=== PATIENT | male | born 1970 | race Caucasian/White ===

== ENCOUNTER 2022-07-13 14:59 | Inpatient (IN) | payer OTHER ==
[2022-07-13 17:18] VITALS: BMI 27.8
[2022-07-13] MEDS ORDERED: IBUPROFEN 400 MG TABLET (FP) PO PRN (19:01)
[2022-07-13] MEDS ORDERED: methaDONE HCL 10 MG TABLET (FOR DETOX USE ONLY) PO ONE (19:01)
[2022-07-13] MEDS ORDERED: ACETAMINOPHEN 325 MG TABLET (FP) PO PRN ×2 (19:01)
[2022-07-13] MEDS ORDERED: BENZOCAINE/MENTHOL (CHLORASEPTIC ) LOZENGE MM PRN (19:01)
[2022-07-13] MEDS ORDERED: NALOXONE HCL (KLOXXADO) 8 MG SPRAY NS PRN (19:01)
[2022-07-13] MEDS ORDERED: MAG HYDROX/AL HYDROX/SIMETH 30 ML UNIT-DOSE CUP PO PRN (19:01)
[2022-07-13] MEDS ORDERED: LOPERAMIDE HCL 2 MG CAPSULE PO PRN (19:01)
[2022-07-13] MEDS ORDERED: IBUPROFEN 600 MG TABLET (FP) PO PRN (19:01)
[2022-07-13] MEDS ORDERED: DICYCLOMINE HCL 10 MG CAPSULE PO PRN (19:01)
[2022-07-13] MEDS ORDERED: MAGNESIUM HYDROX 2400MG/30ML ORAL SUSPENSION 30 ML CUP PO PRN (19:01)
[2022-07-13] MEDS ORDERED: BISMUTH SUBSALICYLATE 524 MG/30 ML PO PRN (19:01)
[2022-07-13] MEDS: cloNIDine HCL 0.1 MG TABLET PO PRN (19:48)
[2022-07-13] MEDS: THIAMINE HCL 100 MG TABLET (FP) PO SCH (22:13)
[2022-07-13] MEDS: METHOCARBAMOL 500 MG TABLET PO PRN (22:13)
[2022-07-13] MEDS: MELATONIN 5 MG TABLETS PO SCH (22:14)
[2022-07-14] MEDS: METHOCARBAMOL 500 MG TABLET PO PRN ×3 (05:14→20:53)
[2022-07-14] MEDS: diazePAM 5 MG TABLET PO PRN ×4 (09:45→22:02)
[2022-07-14] MEDS: NICOTINE 7 MG/24 HOURS TOPICAL PATCH TD SCH (09:47)
[2022-07-14] MEDS: PRENATAL VITAMINS W/ FOLIC ACID TABLET (FP) PO SCH (09:47)
[2022-07-14 10:46] LABS: CALCIUM 9.1 mg/dL (8.5-10.1)
[2022-07-14 10:47] LABS: ALBUMIN 3.5 g/dl (3.4-5.0); BLOOD UREA NITROGEN 19.3 mg/dL (7-18)
[2022-07-14 10:50] LABS: CREATININE 1.1 mg/dL (0.55-1.3)
[2022-07-14 10:51] LABS: BILIRUBIN,TOTAL 0.5 mg/dL (0.2-1)
[2022-07-14 10:52] LABS: TOT PROT 6.8 g/dl (6.4-8.2)
[2022-07-14] MEDS: NICOTINE 10 MG CARTRIDGE (INHALER) IH PRN ×3 (10:52→21:36)
[2022-07-14 10:56] LABS: HEMATOCRIT 44.4 % (35.4-49); HEMOGLOBIN 14.6 GM/dL (11.7-16.9); MCH 30.3 pg (25.7-33.7); MCHC 32.9 g/dl (32.0-35.9); MEAN CELL VOLUME 92.3 fl (80-96); MEAN PLT VOLUME 9.5 fl (7.5-11.1); PLATELET COUNT 181 10^3/uL (134-434); RBC 4.81 M/mm3 (4.00-5.60); RDW 13.2 % (11.9-15.9); WHITE BLOOD COUNT 6.2 K/mm3 (4.0-10.0)
[2022-07-14] MEDS: QUEtiapine FUMARATE 100 MG TABLET (FP) PO SCH (22:02)
[2022-07-14] MEDS: THIAMINE HCL 100 MG TABLET (FP) PO SCH (22:02)
[2022-07-14] MEDS: MELATONIN 5 MG TABLETS PO SCH (22:03)
[2022-07-15] MEDS ORDERED: methaDONE HCL 10 MG TABLET (FOR DETOX USE ONLY) PO ONE (10:00)
[2022-07-15] MEDS: NICOTINE 7 MG/24 HOURS TOPICAL PATCH TD SCH (10:07)
[2022-07-15] MEDS: METHOCARBAMOL 500 MG TABLET PO PRN ×2 (10:07→16:51)
[2022-07-15] MEDS: diazePAM 5 MG TABLET PO PRN ×4 (10:07→22:03)
[2022-07-15] MEDS: PRENATAL VITAMINS W/ FOLIC ACID TABLET (FP) PO SCH (10:07)
[2022-07-15] MEDS: NICOTINE 10 MG CARTRIDGE (INHALER) IH PRN ×3 (10:08→18:40)
[2022-07-15] MEDS: QUEtiapine FUMARATE 100 MG TABLET (FP) PO SCH (22:01)
[2022-07-15] MEDS: THIAMINE HCL 100 MG TABLET (FP) PO SCH (22:01)
[2022-07-15] MEDS: MELATONIN 5 MG TABLETS PO SCH (22:01)
[2022-07-15] MEDS: cloNIDine HCL 0.1 MG TABLET PO PRN (22:01)
[2022-07-16] MEDS: diazePAM 5 MG TABLET PO PRN ×4 (08:15→22:04)
[2022-07-16] MEDS: NICOTINE 10 MG CARTRIDGE (INHALER) IH PRN ×4 (08:16→22:07)
[2022-07-16] MEDS: NICOTINE 7 MG/24 HOURS TOPICAL PATCH TD SCH (10:20)
[2022-07-16] MEDS: PRENATAL VITAMINS W/ FOLIC ACID TABLET (FP) PO SCH (10:20)
[2022-07-16] MEDS: METHOCARBAMOL 500 MG TABLET PO PRN ×2 (10:21→20:15)
[2022-07-16] MEDS: THIAMINE HCL 100 MG TABLET (FP) PO SCH (22:04)
[2022-07-16] MEDS: QUEtiapine FUMARATE 100 MG TABLET (FP) PO SCH (22:05)
[2022-07-16] MEDS: MELATONIN 5 MG TABLETS PO SCH (22:06)
[2022-07-17] MEDS: NICOTINE 10 MG CARTRIDGE (INHALER) IH PRN ×4 (05:39→19:23)
[2022-07-17] MEDS: diazePAM 5 MG TABLET PO PRN ×4 (07:45→22:11)
[2022-07-17] MEDS ORDERED: methaDONE HCL 10 MG TABLET (FOR DETOX USE ONLY) PO ONE (10:00)
[2022-07-17] MEDS: PRENATAL VITAMINS W/ FOLIC ACID TABLET (FP) PO SCH (10:18)
[2022-07-17] MEDS: NICOTINE 7 MG/24 HOURS TOPICAL PATCH TD SCH (10:19)
[2022-07-17] MEDS: METHOCARBAMOL 500 MG TABLET PO PRN (10:19)
[2022-07-17 21:03] VITALS: RESP 18
[2022-07-17] MEDS: THIAMINE HCL 100 MG TABLET (FP) PO SCH (22:10)
[2022-07-17] MEDS: QUEtiapine FUMARATE 100 MG TABLET (FP) PO SCH (22:10)
[2022-07-17] MEDS: MELATONIN 5 MG TABLETS PO SCH (22:13)
[2022-07-18] MEDS: METHOCARBAMOL 500 MG TABLET PO PRN (04:29)
[2022-07-18] MEDS: NICOTINE 10 MG CARTRIDGE (INHALER) IH PRN (06:14)
[2022-07-18] MEDS ORDERED: diazePAM 5 MG TABLET PO ONE (06:48)
[2022-07-18 09:25] VITALS: BP 108/70; PULSE 85; TEMP 97.5
[2022-07-18] MEDS: NICOTINE 7 MG/24 HOURS TOPICAL PATCH TD SCH (09:47)
[2022-07-18] MEDS: PRENATAL VITAMINS W/ FOLIC ACID TABLET (FP) PO SCH (09:49)
== END 2022-07-18 10:10 | disposition home or self-care (01) | DRG 773 ==
LOC: YASAS 14:59 → Y6N 19:25
PROVIDERS: ADMIT Allergy & Immunology; ATTEND Surgery
PROC: HZ2ZZZZ Detoxification Services for Substance Abuse Treatment (ICD-10-PCS; principal; 2022-07-13)
DX: F11.23 Opioid dependence with withdrawal (principal); F12.20 Cannabis dependence, uncomplicated; F17.210 Nicotine dependence, cigarettes, uncomplicated; F39 Unspecified mood [affective] disorder; F41.9 Anxiety disorder, unspecified; K21.9 Gastro-esophageal reflux disease without esophagitis; Z28.310 Unvaccinated for COVID-19; Z56.0 Unemployment, unspecified; Z59.00 Homelessness unspecified
CPT/HCPCS: 36415; 80053; 85027; 86780; 93005; 93010; C9803-CS; U0003; U0005

== ENCOUNTER 2024-01-19 14:32 | Inpatient (IN) | payer OTHER ==
[2024-01-19 15:25] VITALS: BMI 23.3
[2024-01-19] MEDS ORDERED: MAG HYDROX/AL HYDROX/SIMETH 30 ML UNIT-DOSE CUP PO PRN (19:21)
[2024-01-19] MEDS ORDERED: MAGNESIUM HYDROX 2400MG/30ML ORAL SUSPENSION 30 ML CUP PO PRN (19:21)
[2024-01-19] MEDS ORDERED: ONDANSETRON *ODT* 4 MG TABLET SL PRN (19:21)
[2024-01-19] MEDS ORDERED: DICYCLOMINE HCL 10 MG CAPSULE PO PRN (19:21)
[2024-01-19] MEDS ORDERED: BENZOCAINE/MENTHOL (CHLORASEPTIC ) LOZENGE MM PRN (19:21)
[2024-01-19] MEDS ORDERED: LOPERAMIDE HCL 2 MG CAPSULE PO PRN (19:21)
[2024-01-19] MEDS ORDERED: P-EPHED 60MG/TRIPROLIDI 2.5MG TABLET PO PRN (19:21)
[2024-01-19] MEDS ORDERED: guaiFENesin 600 MG TABLET.ER (FP) PO PRN (19:21)
[2024-01-19] MEDS ORDERED: IBUPROFEN 400 MG TABLET (FP) PO PRN (19:21)
[2024-01-19] MEDS ORDERED: POLYETHYLENE GLYCOL (HEALTHYLAX) 3350 17 GM PACKET PO PRN (19:21)
[2024-01-19] MEDS ORDERED: BISMUTH SUBSALICYLATE 524 MG/30 ML PO PRN (19:21)
[2024-01-19] MEDS ORDERED: NALOXONE HCL 0.4 MG/ML VIAL IM PRN (19:21)
[2024-01-19] MEDS ORDERED: NALOXONE HCL (KLOXXADO) 8 MG SPRAY NS PRN (19:21)
[2024-01-19] MEDS ORDERED: ACETAMINOPHEN 325 MG TABLET (FP) PO PRN (19:21)
[2024-01-19] MEDS ORDERED: NICOTINE POLACRILEX 2 MG LOZENGE BC PRN (19:21)
[2024-01-19] MEDS ORDERED: BENZONATATE 200 MG CAPSULE PO PRN (19:21)
[2024-01-19] MEDS ORDERED: VITAMINS A AND D TOPICAL OINTMENT TP PRN (20:04)
[2024-01-19] MEDS: METHOCARBAMOL 500 MG TABLET PO PRN (22:34)
[2024-01-19] MEDS: hydrOXYzine PAMOATE 25 MG CAPSULE (FP) PO PRN (22:34)
[2024-01-19] MEDS: MELATONIN 5 MG TABLETS PO SCH (22:34)
[2024-01-19] MEDS: THIAMINE 100 MG TABLET PO SCH (22:34)
[2024-01-19] MEDS: TOLNAFTATE 1% CREAM 15 GM TUBE TP SCH (22:37)
[2024-01-20] MEDS: PRENATAL VITAMINS W/ FOLIC ACID TABLET (FP) PO SCH (10:28)
[2024-01-20] MEDS ORDERED: cloNIDine HCL 0.1 MG TABLET PO PRN (10:31)
[2024-01-20] MEDS: methaDONE HCL 10 MG TABLET (FOR DETOX USE ONLY) PO ONE (11:01)
[2024-01-20 11:51] LABS: POTASSIUM 4.6 mmol/L (3.5-5.1)
[2024-01-20 11:55] LABS: HEMATOCRIT 39.1 % (35.4-49); HEMOGLOBIN 13.3 GM/dL (11.7-16.9); MCH 30.6 pg (25.7-33.7); MCHC 33.9 g/dl (32.0-35.9); MEAN CELL VOLUME 90.1 fl (80-96); MEAN PLT VOLUME 9.5 fl (7.5-11.1); PLATELET COUNT 196 10^3/uL (134-434); RBC 4.34 M/mm3 (4.00-5.60); RDW 13.2 % (11.9-15.9); WHITE BLOOD COUNT 4.5 K/mm3 (4.0-10.0)
[2024-01-20 11:59] LABS: CALCIUM 9.1 mg/dL (8.5-10.1)
[2024-01-20 12:00] LABS: ALBUMIN 2.8 g/dl (3.4-5.0); BLOOD UREA NITROGEN 18.5 mg/dL (7-18)
[2024-01-20 12:04] LABS: BILIRUBIN,TOTAL 0.4 mg/dL (0.2-1); TOT PROT 5.9 g/dl (6.4-8.2)
[2024-01-20] MEDS: NICOTINE POLACRILEX 2 MG GUM BUC PRN (13:24)
[2024-01-20] MEDS: IBUPROFEN 600 MG TABLET (FP) PO PRN (14:50)
[2024-01-22] MEDS: methaDONE HCL 10 MG TABLET (FOR DETOX USE ONLY) PO ONE (10:09)
[2024-01-22] MEDS: busPIRone HCL 5 MG TABLET PO SCH (11:44)
[2024-01-22] MEDS: DIVALPROEX SODIUM 250 MG TABLET E.C. PO SCH (11:44)
[2024-01-22] MEDS: QUEtiapine FUMARATE 100 MG TABLET (FP) PO SCH (22:45)
[2024-01-24] MEDS: methaDONE HCL 10 MG TABLET (FOR DETOX USE ONLY) PO ONE (10:45)
[2024-01-25 08:56] VITALS: BP 113/73; PULSE 80; RESP 20; TEMP 98
== END 2024-01-25 09:33 | disposition other institution (70) | DRG 773 ==
LOC: YASAS 14:32 → Y3N 20:21
PROVIDERS: ADMIT Allergy & Immunology; ATTEND Surgery
PROC: HZ2ZZZZ Detoxification Services for Substance Abuse Treatment (ICD-10-PCS; principal; 2024-01-19)
DX: F11.23 Opioid dependence with withdrawal (principal); F14.20 Cocaine dependence, uncomplicated; F15.10 Other stimulant abuse, uncomplicated; F12.10 Cannabis abuse, uncomplicated; F17.210 Nicotine dependence, cigarettes, uncomplicated; F25.9 Schizoaffective disorder, unspecified; F19.24 Other psychoactive substance dependence with psychoactive substance-induced mood disorder; F41.9 Anxiety disorder, unspecified; G47.00 Insomnia, unspecified; K21.9 Gastro-esophageal reflux disease without esophagitis
CPT/HCPCS: 36415; 80053; 80305; 80307; 85027; 86780; 93005; 93010

== ENCOUNTER 2024-02-21 19:53 | Inpatient (IN) | payer OTHER ==
[2024-02-21 20:22] VITALS: BMI 23.8
[2024-02-21] MEDS ORDERED: cloNIDine HCL 0.1 MG TABLET PO PRN (22:06)
[2024-02-21] MEDS ORDERED: MAGNESIUM HYDROX 2400MG/30ML ORAL SUSPENSION 30 ML CUP PO PRN (22:06)
[2024-02-21] MEDS ORDERED: BISMUTH SUBSALICYLATE 524 MG/30 ML PO PRN (22:06)
[2024-02-21] MEDS ORDERED: LOPERAMIDE HCL 2 MG CAPSULE PO PRN (22:06)
[2024-02-21] MEDS ORDERED: BENZOCAINE/MENTHOL (CHLORASEPTIC ) LOZENGE MM PRN (22:06)
[2024-02-21] MEDS ORDERED: POLYETHYLENE GLYCOL (HEALTHYLAX) 3350 17 GM PACKET PO PRN (22:06)
[2024-02-21] MEDS ORDERED: IBUPROFEN 400 MG TABLET (FP) PO PRN (22:06)
[2024-02-21] MEDS ORDERED: NALOXONE (NARCAN) HCL 4 MG/0.1 ML SPRAY NS PRN (22:06)
[2024-02-21] MEDS ORDERED: BENZONATATE 200 MG CAPSULE PO PRN (22:06)
[2024-02-21] MEDS ORDERED: guaiFENesin 600 MG TABLET.ER (FP) PO PRN (22:06)
[2024-02-21] MEDS ORDERED: ACETAMINOPHEN 325 MG TABLET (FP) PO PRN (22:06)
[2024-02-21] MEDS ORDERED: NALOXONE HCL 0.4 MG/ML VIAL IM PRN (22:06)
[2024-02-21] MEDS ORDERED: ONDANSETRON *ODT* 4 MG TABLET SL PRN (22:06)
[2024-02-21] MEDS ORDERED: methaDONE HCL 10 MG TABLET (FOR DETOX USE ONLY) ONE (22:50)
[2024-02-21] MEDS: methaDONE HCL 10 MG TABLET (FOR DETOX USE ONLY) PO ONE (22:54)
[2024-02-22] MEDS: PRENATAL VITAMINS W/ FOLIC ACID TABLET (FP) PO SCH (09:26)
[2024-02-22] MEDS: DIVALPROEX SODIUM 500 MG TABLET E.C. PO SCH (09:27)
[2024-02-22] MEDS: DEXTROAMPHETAMINE/AMPHETAMINE 10 MG CAP.ER.24H PO SCH (09:27)
[2024-02-22] MEDS: METHYL SALICYLATE/MENTHOL OINT 30 GM TUBE TP SCH (09:28)
[2024-02-22] MEDS: NICOTINE 14 MG/24 HOURS TOPICAL PATCH TD SCH (09:29)
[2024-02-22] MEDS: LIDOCAINE 5% TOPICAL PATCH TP SCH (10:29)
[2024-02-22] MEDS: NICOTINE POLACRILEX 2 MG GUM BUC PRN (10:50)
[2024-02-22 12:04] LABS: CHLORIDE 108 mmol/L (98-107); POTASSIUM 4.7 mmol/L (3.5-5.1); SODIUM 140 mmol/L (136-145)
[2024-02-22 12:13] LABS: ANION GAP 2 mmol/L (4-13); BLOOD UREA NITROGEN 20.1 mg/dL (7-18); CALCIUM 8.9 mg/dL (8.5-10.1); CO2 30 mmol/L (21-32); GLUCOSE,RANDOM 120 mg/dL (74-106)
[2024-02-22 12:16] LABS: SGOT/AST 21 U/L (15-37)
[2024-02-22 12:17] LABS: SGPT/ALT 25 U/L (13-61)
[2024-02-22 12:18] LABS: BILIRUBIN,TOTAL 0.7 mg/dL (0.2-1); HEMOGLOBIN 13.5 GM/dL (11.7-16.9); MCH 31.1 pg (25.7-33.7); MCHC 32.9 g/dl (32.0-35.9); MEAN CELL VOLUME 94.5 fl (80-96); MEAN PLT VOLUME 9.3 fl (7.5-11.1); PLATELET COUNT 176 10^3/uL (134-434); RBC 4.34 M/mm3 (4.00-5.60); RDW 14.3 % (11.9-15.9); TOT PROT 5.9 g/dl (6.4-8.2); WHITE BLOOD COUNT 5.8 K/mm3 (4.0-10.0)
[2024-02-22 12:19] LABS: ALK PHOS 134 U/L (45-117)
[2024-02-22] MEDS: busPIRone HCL 10 MG TABLET (FP) PO SCH (13:21)
[2024-02-22] MEDS: TOLNAFTATE 1% CREAM 15 GM TUBE TP SCH (13:43)
[2024-02-22] MEDS: METHOCARBAMOL 500 MG TABLET PO PRN (16:43)
[2024-02-22] MEDS: IBUPROFEN 600 MG TABLET (FP) PO PRN (16:43)
[2024-02-22] MEDS: hydrOXYzine PAMOATE 25 MG CAPSULE (FP) PO PRN (16:44)
[2024-02-22] MEDS: THIAMINE 100 MG TABLET PO SCH (21:41)
[2024-02-22] MEDS: QUEtiapine FUMARATE 300 MG TABLET PO SCH (21:41)
[2024-02-22] MEDS: LIDOCAINE PATCH REMOVAL MC SCH (21:45)
[2024-02-22] MEDS ORDERED: MELATONIN 5 MG TABLETS PO SCH (22:00)
[2024-02-23] MEDS: methaDONE HCL 10 MG TABLET (FOR DETOX USE ONLY) PO ONE (09:43)
[2024-02-25] MEDS: methaDONE HCL 10 MG TABLET (FOR DETOX USE ONLY) PO ONE (09:36)
[2024-02-26] MEDS: MAG HYDROX/AL HYDROX/SIMETH 30 ML UNIT-DOSE CUP PO PRN (07:50)
[2024-02-26] MEDS: DICYCLOMINE HCL 10 MG CAPSULE PO PRN (16:27)
[2024-02-26] MEDS: metFORMIN HCL 500 MG TABLET (FP) PO ONE (19:23)
[2024-02-26] MEDS: INSULIN ASPART SLIDING SCALE (NOVOLOG) 1 VIAL SQ SCH (22:15)
[2024-02-27] MEDS: metFORMIN HCL 500 MG TABLET (FP) PO SCH (06:55)
[2024-02-28 09:12] VITALS: RESP 16; TEMP 97.1
[2024-02-28] MEDS: METHOCARBAMOL 500 MG TABLET PO ONE (09:42)
[2024-02-28 13:35] VITALS: BP 126/86; PULSE 87
== END 2024-02-28 13:35 | disposition other institution (70) | DRG 773 ==
LOC: YASAS 19:53 → Y6N 22:37
PROVIDERS: ADMIT Allergy & Immunology; ATTEND Surgery
PROC: HZ2ZZZZ Detoxification Services for Substance Abuse Treatment (ICD-10-PCS; principal; 2024-02-21)
DX: F11.23 Opioid dependence with withdrawal (principal); F14.20 Cocaine dependence, uncomplicated; F17.210 Nicotine dependence, cigarettes, uncomplicated; F25.0 Schizoaffective disorder, bipolar type; F19.280 Other psychoactive substance dependence with psychoactive substance-induced anxiety disorder; F19.282 Other psychoactive substance dependence with psychoactive substance-induced sleep disorder; F41.9 Anxiety disorder, unspecified; E11.9 Type 2 diabetes mellitus without complications; J45.909 Unspecified asthma, uncomplicated; K21.9 Gastro-esophageal reflux disease without esophagitis; M17.0 Bilateral primary osteoarthritis of knee; B35.3 Tinea pedis
CPT/HCPCS: 0241U-QW; 36415; 80053; 80307; 82962; 85027; 86780; 93005; 93010

== ENCOUNTER 2025-01-25 18:36 | Inpatient (IN) | payer OTHER ==
[2025-01-25 19:02] VITALS: BMI 23.6
[2025-01-25] MEDS ORDERED: NALOXONE (NARCAN) HCL 4 MG/0.1 ML SPRAY NS PRN (19:42)
[2025-01-25] MEDS ORDERED: BENZONATATE 200 MG CAPSULE PO PRN (19:42)
[2025-01-25] MEDS ORDERED: LOPERAMIDE HCL 2 MG CAPSULE PO PRN (19:42)
[2025-01-25] MEDS ORDERED: ONDANSETRON *ODT* 4 MG TABLET SL PRN (19:42)
[2025-01-25] MEDS ORDERED: BENZOCAINE/MENTHOL (CHLORASEPTIC ) LOZENGE MM PRN (19:42)
[2025-01-25] MEDS ORDERED: guaiFENesin 600 MG TABLET.ER (FP) PO PRN (19:42)
[2025-01-25] MEDS ORDERED: BISMUTH SUBSALICYLATE 524 MG/30 ML PO PRN (19:42)
[2025-01-25] MEDS ORDERED: ACETAMINOPHEN 325 MG TABLET (FP) PO PRN (19:42)
[2025-01-25] MEDS ORDERED: POLYETHYLENE GLYCOL (HEALTHYLAX) 3350 17 GM PACKET PO PRN (19:42)
[2025-01-25] MEDS ORDERED: IBUPROFEN 400 MG TABLET (FP) PO PRN (19:42)
[2025-01-25] MEDS: MELATONIN 5 MG TABLETS PO SCH (22:29)
[2025-01-25] MEDS: THIAMINE 100 MG TABLET PO SCH (22:29)
[2025-01-26] MEDS ORDERED: methaDONE HCL 10 MG TABLET (FOR DETOX USE ONLY) PO PRN (08:52)
[2025-01-26] MEDS: methaDONE HCL 10 MG TABLET (FOR DETOX USE ONLY) PO ONE (09:22)
[2025-01-26] MEDS: PRENATAL VITAMINS W/ FOLIC ACID TABLET (FP) PO SCH (09:25)
[2025-01-26] MEDS: BACITRACIN 0.9 GM PACKET TP SCH (11:04)
[2025-01-26 11:48] LABS: HEMOGLOBIN 12.2 g/dL (13.7-17.5); MEAN PLT VOLUME 11.2 fl (9.4-12.4); PLATELET COUNT 199 x10^3/uL (163-337); RDW 13.2 % (12.2-16.1)
[2025-01-26 12:09] LABS: CHLORIDE 110 mmol/L (98-107); POTASSIUM 3.9 mmol/L (3.5-5.1); SODIUM 141 mmol/L (136-145)
[2025-01-26 12:28] LABS: ALBUMIN 2.9 g/dl (3.4-5.0); ANION GAP 6 mmol/L (4-13); CALCIUM 9.3 mg/dL (8.5-10.1); CO2 25 mmol/L (21-32); GLUCOSE,RANDOM 192 mg/dL (74-106)
[2025-01-26 12:29] LABS: BLOOD UREA NITROGEN 19.9 mg/dL (7-18)
[2025-01-26 12:30] LABS: CREATININE 0.9 mg/dL (0.55-1.3)
[2025-01-26 12:31] LABS: SGOT/AST 24 U/L (15-37); SGPT/ALT 33 U/L (13-61)
[2025-01-26 12:32] LABS: BILIRUBIN,TOTAL 0.4 mg/dL (0.2-1); TOT PROT 5.7 g/dl (6.4-8.2)
[2025-01-26 12:34] LABS: ALK PHOS 127 U/L (45-117)
[2025-01-26] MEDS: metFORMIN HCL 500 MG TABLET (FP) PO SCH (17:14)
[2025-01-27] MEDS: cloNIDine HCL 0.1 MG TABLET PO PRN (09:21)
[2025-01-27] MEDS: methaDONE HCL 10 MG TABLET (FOR DETOX USE ONLY) PO ONE (09:22)
[2025-01-27] MEDS: METHOCARBAMOL 500 MG TABLET PO PRN (09:22)
[2025-01-27] MEDS: methaDONE HCL 10 MG TABLET PO ONE ×2 (13:09→17:37)
[2025-01-28] MEDS: IBUPROFEN 600 MG TABLET (FP) PO PRN (02:48)
[2025-01-28] MEDS: hydrOXYzine PAMOATE 25 MG CAPSULE (FP) PO PRN (05:32)
[2025-01-28] MEDS: methaDONE 40 MG, methaDONE 20 MG PO ONE (11:17)
[2025-01-28] MEDS: methaDONE HCL 10 MG TABLET PO ONE (11:38)
[2025-01-28] MEDS: QUEtiapine FUMARATE 50 MG TABLET PO SCH (22:18)
[2025-01-29] MEDS ORDERED: methaDONE HCL 10 MG TABLET (FOR DETOX USE ONLY) PO ONE (10:00)
[2025-01-30] MEDS: MAG HYDROX/AL HYDROX/SIMETH 30 ML UNIT-DOSE CUP PO PRN (07:13)
[2025-01-30] MEDS: MAGNESIUM HYDROX 2400MG/30ML ORAL SUSPENSION 30 ML CUP PO PRN (08:12)
[2025-01-30] MEDS: DICYCLOMINE HCL 10 MG CAPSULE PO PRN (08:26)
[2025-01-30] MEDS: methaDONE 40 MG, methaDONE 30 MG PO ONE (09:37)
[2025-01-31] MEDS ORDERED: methaDONE HCL 10 MG TABLET (FOR DETOX USE ONLY) PO ONE (10:00)
[2025-01-31] MEDS: methaDONE HCL 40 MG DISPERSABLE TABLET PO ONE (11:01)
[2025-02-01 09:33] VITALS: BP 132/82; PULSE 82; RESP 18; TEMP 97.3
[2025-02-01] MEDS: methaDONE HCL 40 MG DISPERSABLE TABLET PO ONE (09:42)
[2025-02-01] MEDS ORDERED: methaDONE HCL 40 MG DISPERSABLE TABLET PO ONE (10:00)
== END 2025-02-01 09:55 | disposition home or self-care (01) | DRG 773 ==
LOC: YASAS 18:36 → Y3N 20:26
PROVIDERS: ADMIT Allergy & Immunology; ATTEND Allergy & Immunology
PROC: HZ2ZZZZ Detoxification Services for Substance Abuse Treatment (ICD-10-PCS; principal; 2025-01-25)
DX: F11.23 Opioid dependence with withdrawal (principal); F10.230 Alcohol dependence with withdrawal, uncomplicated; F14.20 Cocaine dependence, uncomplicated; F20.9 Schizophrenia, unspecified; F31.9 Bipolar disorder, unspecified; F19.24 Other psychoactive substance dependence with psychoactive substance-induced mood disorder; K21.9 Gastro-esophageal reflux disease without esophagitis; E11.9 Type 2 diabetes mellitus without complications; Z79.84 Long term (current) use of oral hypoglycemic drugs; Z72.0 Tobacco use
CPT/HCPCS: 36415; 80053; 80305; 80307; 82962; 85027; 86780; 93005; 93010